=== PATIENT | male | born 1970 | race Caucasian/White ===

== ENCOUNTER 2016-09-20 02:53 | Inpatient (IN) | payer OTHER ==
[2016-09-20] VITALS (25 sets, daily range): BP systolic 105–179; RESP 14–28; TEMP 98–98.9; BMI 21.0
[~2016-09-20] VITALS: Ht 170.2 cm; Wt 60.8 kg
[2016-09-20] MEDS ORDERED: LORAZEPAM 2 MG/ML VIAL ONE ×2 (03:08→03:17)
[2016-09-20] MEDS ORDERED: DIPHENHYDRAMINE 50 MG/ML VIAL ONE (03:18)
[2016-09-20] MEDS ORDERED: HALOPERIDOL 5 MG/ML VIAL ONE (03:19)
[2016-09-20] MEDS ORDERED: TDaP 0.5 ML VIAL IM.VACC ONE (04:34)
[2016-09-20] MEDS ORDERED: BISACODYL EC 5 MG TAB PO PRN (06:05)
[2016-09-20] MEDS ORDERED: ACETAMINOPHEN 325 MG TAB PO PRN (06:05)
[2016-09-20] MEDS ORDERED: ALU/MAG/SIM 30 ML UDC PO PRN (06:05)
[2016-09-20] MEDS ORDERED: SALINE FLUSH 10 ML FLUSH PRN (06:05)
[2016-09-20] MEDS ORDERED: BISACODYL 10 MG SUPP RECTAL PRN (06:05)
[2016-09-20] MEDS ORDERED: ONDANSETRON 4 MG VIAL IV PRN (06:05)
[2016-09-20] MEDS ORDERED: MAG HYDROX 30 ML UDC PO PRN (06:05)
[2016-09-20] MEDS ORDERED: SODIUM CHLORIDE 0.9% 1,000 ML ONE (06:09)
[2016-09-20] MEDS ORDERED: ONDANSETRON 4 MG VIAL IV PUSH PRN (06:45)
[2016-09-20] MEDS ORDERED: HALOPERIDOL 5 MG/ML VIAL IV PRN (06:45)
[2016-09-20] MEDS: SODIUM CHLORIDE 0.9% 1,000 ML IV SCH ×3 (07:29→23:56)
[2016-09-20] MEDS: SALINE FLUSH 10 ML FLUSH SCH ×2 (07:54→19:59)
[2016-09-20] MEDS: FAMOTIDINE 20 MG INJ IV SCH ×2 (07:54→19:59)
[2016-09-20] MEDS: CEFTRIAXONE 1 GM in SODIUM CHLORIDE 0.9% 50 ML IV SCH (09:25)
[2016-09-20] MEDS: LORAZEPAM 2 MG/ML VIAL IV PRN ×2 (15:48→19:58)
[2016-09-20] MEDS: HALOPERIDOL 5 MG/ML VIAL IV PRN ×2 (17:25→21:29)
[2016-09-21] VITALS (26 sets, daily range): BP systolic 114–166; RESP 16–28; TEMP 97.8–98.3; Ht 170.2 cm; Wt 60.8 kg
[2016-09-21] MEDS: LORAZEPAM 2 MG/ML VIAL IV PRN ×5 (00:04→21:49)
[2016-09-21] MEDS: HALOPERIDOL 5 MG/ML VIAL IV PRN ×4 (03:07→20:19)
[2016-09-21] MEDS: SODIUM CHLORIDE 0.9% FLUSH BAG 500 ML IV SCH (05:55)
[2016-09-21] MEDS: SALINE FLUSH 10 ML FLUSH SCH ×2 (08:32→20:20)
[2016-09-21] MEDS: FAMOTIDINE 20 MG INJ IV SCH ×2 (08:41→20:20)
[2016-09-21] MEDS: METOPROLOL 5 MG/5 ML VIAL IV SCH ×3 (09:15→17:57)
[2016-09-21] MEDS: CEFTRIAXONE 1 GM in SODIUM CHLORIDE 0.9% 50 ML IV SCH (10:16)
[2016-09-21] MEDS: POTASSIUM CHLORIDE PREMIX 50 ML IV SCH ×4 (10:46→16:12)
[2016-09-21] MEDS ORDERED: HALOPERIDOL 5 MG/ML VIAL IV ONE (13:35)
[2016-09-21] MEDS ORDERED: LORAZEPAM 2 MG/ML VIAL IV ONE ×2 (13:35→13:40)
[2016-09-21] MEDS ORDERED: HALOPERIDOL 5 MG/ML VIAL IM ONE (13:40)
[2016-09-21] MEDS ORDERED: LIDOCAINE 2% 20 ML INJ ONE (16:29)
[2016-09-21] MEDS ORDERED: SOD BICARB 8.4% VIAL 50 ML IV ONE (16:29)
[2016-09-21] MEDS: RISPERIDONE 1 MG/ML PO SCH (18:04)
[2016-09-21] MEDS: MULTIVITS ADULT INJ 10 ML, THIAMINE 100 MG, FOLIC ACID INJ 1 MG in SODIUM CHLORIDE 0.9%... IV SCH ×3 (19:20)
[2016-09-21] MEDS: NICOTINE 21 MG/24 HR TRANSDERM SCH (20:19)
[2016-09-22] VITALS (20 sets, daily range): BP systolic 123–173; RESP 14–26; TEMP 97.6–98.7
[2016-09-22] MEDS: METOPROLOL 5 MG/5 ML VIAL IV SCH ×3 (00:20→13:35)
[2016-09-22] MEDS: RISPERIDONE 1 MG/ML PO SCH ×3 (00:21→22:20)
[2016-09-22] MEDS ORDERED: MISSING DOSE XX ONE (05:05)
[2016-09-22] MEDS: SODIUM CHLORIDE 0.9% FLUSH BAG 500 ML IV SCH (05:37)
[2016-09-22] MEDS: MULTIVITS ADULT INJ 10 ML, THIAMINE 100 MG, FOLIC ACID INJ 1 MG in SODIUM CHLORIDE 0.9%... IV SCH ×6 (05:38→15:38)
[2016-09-22] MEDS: NICOTINE 21 MG/24 HR TRANSDERM SCH (07:50)
[2016-09-22] MEDS: SALINE FLUSH 10 ML FLUSH SCH ×2 (07:51→20:51)
[2016-09-22] MEDS: FAMOTIDINE 20 MG INJ IV SCH (07:51)
[2016-09-22] MEDS: CEFTRIAXONE 1 GM in SODIUM CHLORIDE 0.9% 50 ML IV SCH (07:51)
[2016-09-22] MEDS ORDERED: POTASSIUM PHOSPHATE 45 MMOL in SODIUM CHLORIDE 0.9% 500 ML IV ONE (08:10)
[2016-09-22] MEDS: *HOME MEDS KEPT IN PHARMACY XX SCH (20:00)
[2016-09-22] MEDS: METOPROLOL TART 25 MG TAB PO SCH (22:19)
[2016-09-23] VITALS (7 sets, daily range): BP systolic 136–178; RESP 18–22; TEMP 98.3–99.3
[2016-09-23] MEDS: MULTIVITS ADULT INJ 10 ML, THIAMINE 100 MG, FOLIC ACID INJ 1 MG in SODIUM CHLORIDE 0.9%... IV SCH ×3 (02:21)
[2016-09-23] MEDS: SODIUM CHLORIDE 0.9% FLUSH BAG 500 ML IV SCH (06:00)
[2016-09-23] MEDS ORDERED: PANTOPRAZOLE 40 MG TAB PO SCH (07:00)
[2016-09-23] MEDS: SALINE FLUSH 10 ML FLUSH SCH ×2 (08:00→20:08)
[2016-09-23] MEDS: *HOME MEDS KEPT IN PHARMACY XX SCH ×2 (08:00→19:32)
[2016-09-23] MEDS ORDERED: POTASSIUM PHOSPHATE 45 MMOL in SODIUM CHLORIDE 0.9% 500 ML IV ONE (08:30)
[2016-09-23] MEDS: METOPROLOL TART 25 MG TAB PO SCH ×2 (08:47→20:09)
[2016-09-23] MEDS: FOLIC ACID 1 MG TAB PO SCH (08:47)
[2016-09-23] MEDS: THIAMINE 100 MG TAB PO SCH (08:48)
[2016-09-23] MEDS: CEFTRIAXONE 1 GM in SODIUM CHLORIDE 0.9% 50 ML IV SCH (08:48)
[2016-09-23] MEDS: NICOTINE 21 MG/24 HR TRANSDERM SCH (08:49)
[2016-09-23] MEDS: RISPERIDONE 1 MG/ML PO SCH ×2 (08:50→20:09)
[2016-09-23] MEDS ORDERED: MISSING DOSE XX ONE (09:50)
[2016-09-23] MEDS: LOTREL 5/10 CAP PO SCH (11:53)
[2016-09-23] MEDS ORDERED: MEMANTINE 5 MG TAB PO SCH (12:00)
[2016-09-23] MEDS: CEFUROXIME 250 MG TAB PO SCH (20:09)
[2016-09-23] MEDS: POTASSIUM CHLORIDE PREMIX 10 MEQ in PART FILL PIGGYBACK 1 EA IV SCH (23:28)
[2016-09-24] MEDS: POTASSIUM CHLORIDE PREMIX 10 MEQ in PART FILL PIGGYBACK 1 EA IV SCH (00:33)
[2016-09-24] MEDS: SODIUM CHLORIDE 0.9% FLUSH BAG 500 ML IV SCH ×2 (04:41→05:50)
[2016-09-24 04:47] VITALS: BP_SYST 159; RESP 20; TEMP 98.9
[2016-09-24] MEDS ORDERED: MISSING DOSE XX ONE (07:40)
[2016-09-24 07:53] VITALS: BP_SYST 166; RESP 18; TEMP 98.5
[2016-09-24] MEDS: *HOME MEDS KEPT IN PHARMACY XX SCH (08:00)
[2016-09-24] MEDS: SALINE FLUSH 10 ML FLUSH SCH (08:37)
[2016-09-24] MEDS: CEFUROXIME 250 MG TAB PO SCH (08:38)
[2016-09-24] MEDS: THIAMINE 100 MG TAB PO SCH (08:38)
[2016-09-24] MEDS: NICOTINE 21 MG/24 HR TRANSDERM SCH (08:38)
[2016-09-24] MEDS: RISPERIDONE 1 MG/ML PO SCH (08:39)
[2016-09-24] MEDS: METOPROLOL TART 25 MG TAB PO SCH (08:39)
[2016-09-24] MEDS: FOLIC ACID 1 MG TAB PO SCH (08:39)
[2016-09-24] MEDS: LOTREL 5/10 CAP PO SCH (08:39)
[2016-09-24] MEDS ORDERED: MEMANTINE 10 MG TAB PO SCH ×2 (09:00→12:00)
[2016-09-24] MEDS ORDERED: MEMANTINE 5 MG TAB PO SCH (09:00)
[2016-09-24 11:08] VITALS: BP_SYST 171; RESP 18; TEMP 98.5
[2016-09-24] MEDS ORDERED: K PHOS 500 MG PO ONE (11:40)
[2016-09-24 12:07] VITALS: BP_SYST 171; RESP 18; TEMP 98.5
== END 2016-09-24 14:50 | disposition home or self-care (01) | DRG 885 ==
LOC: ENRESERVDT → ENRESERVTM → ER 02:53 → ENPENDDIS 06:04 → EMR 06:04 → CCU 06:45 → 3NT 09-22 16:32
PROVIDERS: ADMIT Family Medicine Addiction Medicine; ATTEND Family Medicine Addiction Medicine
PROC: 0HQ1XZZ Repair Face Skin, External Approach (ICD-10-PCS; principal; 2016-09-20)
PROC: 009U3ZX Drainage of Spinal Canal, Percutaneous Approach, Diagnostic (ICD-10-PCS; 2016-09-21)
DX: F29 Unspecified psychosis not due to a substance or known physiological condition (principal); F10.231 Alcohol dependence with withdrawal delirium; I10 Essential (primary) hypertension; J01.00 Acute maxillary sinusitis, unspecified; J32.0 Chronic maxillary sinusitis; F17.210 Nicotine dependence, cigarettes, uncomplicated; R00.0 Tachycardia, unspecified; S01.411A Laceration without foreign body of right cheek and temporomandibular area, initial encounter; Y04.2XXA Assault by strike against or bumped into by another person, initial encounter; Y92.019 Unspecified place in single-family (private) house as the place of occurrence of the external cause
CPT/HCPCS: 36415; 62270; 70450; 70486; 70551; 71010; 77003; 80053; 80307; 80320; 81003; 82040; 82042; 82438; 82784; 82945; 82947; 83735; 83873; 83916; 84100; 84132; 84157; 84439; 84443; 85025; 85610; 85730; 86592; 86618; 86694; 87040; 87071; 87102; 87116; 87205; 87206; 87327; 88108; 89051; 93005; 94799; 96361; 96374; 96375; 99223; 99233; 99239